=== PATIENT | male | born 1990 | race Caucasian/White ===

== ENCOUNTER 2017-07-29 09:11 | Day surgery (SDC) | payer OTHER ==
[~2017-07-29 09:11] MED LIST: ACIDOPHILUS LA1 EACH PO; AUGMENTIN 875-1 EACH PO; NOMEDS XX; PHENERGAN25 M3 PO
--- NOTE | 2017-07-29 11:43 | Operative Note ---
Upper GI Endoscopy Procedure date: 07/29/17 Date of : [birth year] Procedure:Upper GI Endoscopy Esophagogastroduodenoscopy with cold biopsies Indications: Mr. Rodriguez is a 27-year-old gentleman with RIGHT sided and RIGHT lower quadrant abdominal pain. He also reports constipation and gassiness. He has occasional nausea. His weight has fluctuated. He did have a CAT scan of the abdomen and pelvis which showed thickening of the body and fundus of the stomach as well as thickening of the sigmoid colon. The patient reports no heartburn, reflux or dysphagia. He reports no bloating or early satiety. Performing Provider: Salma Mueller MD Referring Provider: Ranjeet Paiz M.D. Sedation: Fentanyl 100 mg IV/Versed 7 mg IV Procedure: Prior to the procedure, a history and physical exam was performed, and patients medications and allergies were reviewed. The risks and benefits of the procedure and the sedation options and risks were discussed with the patient. All questions were answered and informed consent was obtained. The patient was brought to the procedure room. Patient identification and proposed procedure were verified by the physician and the nurse. The patient was placed in a left lateral decubitus position and the scope was passed under direct vision. Throughout the procedure, the patient's blood pressure, pulse, and oxygen saturations were monitored continuously. The endoscope was introduced through the mouth, and advanced to the second part of duodenum. The upper GI endoscopy was accomplished without difficulty. The patient tolerated the procedure well. Findings: The scope was passed directly into the upper esophagus and advanced to the third portion of the duodenum. There was some dilation of the second portion of the duodenum with vague appearance of extrinsic compression in third portion of duodenum suggestive of SMA (superior mesenteric artery) syndrome. The scope was withdrawn through a normal duodenal bulb and pylorus into the stomach. There was some chronic gastritis of the body and fundus of the stomach and cold biopsies were obtained to rule out H. pylori. Upon retroflexion there was no hiatal hernia. 2 biopsies were taken in the antrum and along the lesser curvature for histology. The scope was then withdrawn into the esophagus. There was a serrated Z line but no evidence of reflux esophagitis or Araiza's. The remainder of the esophageal mucosa was normal. Immediate complications: None EBL (ml): 0 Impression: 1. Chronic gastritisrule out H. pylori 2. Mild dilation of the proximal duodenum with possible SMA syndrome Recommendations: The patient does not have symptoms that support SMA syndrome but will review CAT scan if it is performed with good intravenous contrast and oral contrast. I did not see any etiology of his RIGHT lower quadrant abdominal pain. We will discuss whether colonoscopy is now warranted. I will follow up the biopsies to exclude H. pylori. at [id number]
[2017-07-29 14:11] VITALS: BP 118/63
== END 2017-07-29 12:40 | disposition home or self-care (01) ==
LOC: SDC 09:11
PROVIDERS: Internal Medicine Gastroenterology
PROC: 0DB68ZX Excision of Stomach, Via Natural or Artificial Opening Endoscopic, Diagnostic (ICD-10-PCS; principal; 2017-07-29 10:30)
DX: K29.50 Unspecified chronic gastritis without bleeding (principal); K59.39 Other megacolon; K59.00 Constipation, unspecified; R10.84 Generalized abdominal pain; R10.31 Right lower quadrant pain